=== PATIENT | female | born 1960 | race Two or more races ===

== ENCOUNTER 2022-07-17 08:41 | Outpatient (CLI) | payer OTHER | END 2022-07-17 08:52 | disposition home or self-care (01) | LOC: SONOGRAMA 08:41 | PROVIDERS: ATTEND Specialist | DX: K80.10 Calculus of gallbladder with chronic cholecystitis without obstruction (principal) ==

== ENCOUNTER 2022-10-12 08:54 | Outpatient (CLI) | payer OTHER | END 2022-10-12 09:10 | disposition home or self-care (01) | LOC: MRI 08:54 | PROVIDERS: ATTEND Specialist | DX: K76.89 Other specified diseases of liver (principal); K82.4 Cholesterolosis of gallbladder | CPT/HCPCS: 74181 ==